=== PATIENT | female | born 1945 | race Hispanic/Latino ===

== ENCOUNTER 2020-11-11 13:25 | Emergency (ER) | payer MEDICARE ==
[2020-11-11] MEDS ORDERED: MORPHINE 2 MG/1 ML INJ IM NR ×2 (13:57→15:00)
[2020-11-11] MEDS ORDERED: SODIUM CHLORIDE 0.9% 500 ML 500 ML IV NR (13:57)
[2020-11-11] MEDS ORDERED: ONDANSETRON 4 MG/2 ML INJ IV NR ×2 (13:58→15:00)
--- NOTE | 2020-11-11 14:00 | Emergency Department Report ---
HPI <ADELINA LEMOS - Last Filed: 11/11/20 18:02> - HPI HPI: 75-year-old female with past medical history significant for bilateral hearing loss, COPD, and prior colostomy status post reversal presents complaining of left lower quadrant abdominal pain and left flank pain for approximately 1 week. She states that she had a colostomy in the past because she had perforated bowel. The patient reports that for the last week she has had worsening nausea and is now vomiting every time she tries to eat and often while trying to drink. She is not had a bowel movement in 1 week. She says that now because she is unable to tolerate p.o. she has been dry heaving. She states that she was seen in the ER at [place] on November 04 with these same symptoms, was worked up and was discharged home. He states that the left lower quadrant pain seemed to get much better for the first few days and then in the last couple days has gotten much worse and has been associated with nausea/vomiting. Other than the pain and nausea vomiting, she denies fever/chills, headache, vision change, chest pain, shortness of breath, cough, dysuria, focal weakness, sensory changes, or any other complaints. <XAVIERABRAHAM - Last Filed: 11/11/20 21:51> - General Chief Complaint: Abdominal Pain Time Seen by Provider: 11/11/20 13:40 ED Past Medical Hx <ADELINA LEMOS - Last Filed: 11/11/20 18:02> - Past Medical History Previous Medical History?: Yes Hx COPD: Yes - Social History Smoking Status: Current Every Day Smoker <XAVIERABRAHAM - Last Filed: 11/11/20 21:51> - Medications Home Medications: Home Medications Medication Instructions Recorded Confirmed Last Taken Type polyethylene glycoL 3350 [Miralax 17 gm PO QDAY #30 packet 11/11/20 Unknown Rx 3350] ED Review of Systems ROS: Stated complaint: ABDOMINAL PAIN Other details as noted in HPI <ADELINA LEMOS - Last Filed: 11/11/20 18:02> ROS: Stated complaint: ABDOMINAL PAIN Other details as noted in HPI Constitutional: denies: chills, fever Eyes: denies: eye pain, vision change ENT: denies: throat pain, congestion Respiratory: denies: cough, shortness of breath Cardiovascular: denies: chest pain, palpitations Gastrointestinal: abdominal pain, nausea, vomiting, constipation. denies: hematemesis Genitourinary: denies: dysuria, frequency Musculoskeletal: denies: joint swelling, myalgia Skin: denies: rash Neurological: denies: headache, weakness, numbness <ABRAHAM PARK - Last Filed: 11/11/20 21:51> Physical Exam - Physical Exam Vital Signs: Vital Signs 11/11/20 11/11/20 11/11/20 13:38 13:46 13:53 Temperature 98.1 F Pulse Rate 75 Respiratory 24 Rate Blood Pressure 179/88 O2 Sat by Pulse 98 98 Oximetry <ADELINA LEMOS - Last Filed: 11/11/20 18:02> - Physical Exam Vital Signs: Vital Signs 11/11/20 11/11/20 13:38 13:46 Pulse Rate 75 Respiratory 24 Rate Blood Pressure 179/88 O2 Sat by Pulse 98 98 Oximetry Physical Exam: GENERAL: Well developed and well nourished. No acute distress HEENT: Normocephalic. No obvious signs of trauma. Very poor dentition with multiple obvious caries and necrosis present. No obvious periapical abscess. Dry mucous membranes. EYES: Extraocular movements are intact. Pupils are equal round and reactive to light bilaterally NECK: Supple. Trachea is midline. LUNGS: Nonlabored breathing. Equal chest rise bilaterally. Clear to auscultation bilaterally. HEART/CARDIOVASCULAR: Regular rate and rhythm. No murmurs or rubs. VASCULAR: Cap refill < 2 seconds ABDOMEN: Abdomen is slightly distended. There is no firmness, although the patient has significant voluntary guarding most significantly on palpation of the left upper and left lower quadrants. There is no rebound tenderness. There are multiple healed surgical scars. SKIN: Skin is warm and dry NEURO: Patient is awake, alert, and oriented. distribution field technician II-XII grossly intact. No focal deficits. Normal motor and sensory exam throughout. Normal speech. MUSCULOSKELETAL: No obvious deformities. No significant tenderness. Normal ROM throughout. BACK/SPINE: No midline tenderness or step-offs of the C/T/L spine. No costovertebral angle tenderness. <ABRAHAM PARK - Last Filed: 11/11/20 21:51> ED Course Vital Signs 11/11/20 11/11/20 11/11/20 13:38 13:46 13:53 Temperature 98.1 F Pulse Rate 75 Respiratory 24 Rate Blood Pressure 179/88 O2 Sat by Pulse 98 98 Oximetry - Reevaluation(s) Reevaluation #1: 11/11/20 18:02 Patient reassessed. The patient has no left lower quadrant or any lower abdominal tenderness, rebound, guarding or peritoneal signs. She tells me she has follow-up with her primary care doctor on Wednesday of this week. She specifically denies irritative and obstructive urinary symptoms. She does report a known history of constipation and takes MiraLAX. However, she takes it infrequently, and her diet is poor, and typically does not consume a lot of fiber, vegetables, lean protein, and does not drink that much water. Counseled patient on natural history of constipation, and need to modify diet lifestyle. Patient given ice water by myself, which she tolerated, without difficulty. Patient is asking to be discharged, and at this point in time, given close follow-up, objective diagnostic and laboratory testing, lack of urinary symptoms, I think this plan of care is reasonable. <ADELINA LMEOS - Last Filed: 11/11/20 18:02> Vital Signs 11/11/20 11/11/20 13:38 13:46 Pulse Rate 75 Respiratory 24 Rate Blood Pressure 179/88 O2 Sat by Pulse 98 98 Oximetry <ABRAHAM PARK - Last Filed: 11/11/20 21:51> ED Medical Decision Making - Lab Data Result diagrams: 11/11/20 14:17 11/11/20 14:17 Vital Signs 11/11/20 11/11/20 11/11/20 13:38 13:46 13:53 Temperature 98.1 F Pulse Rate 75 Respiratory 24 Rate Blood Pressure 179/88 O2 Sat by Pulse 98 98 Oximetry Lab Results 11/11/20 11/11/20 Range/Units 14:17 14:17 WBC 10.2 (4.5-11.0) K/mm3 RBC 4.20 (3.65-5.03) M/mm3 Hgb 13.1 (10.1-14.3) gm/dl Hct 38.6 (30.3-42.9) % MCV 92 (79-97) fl MCH 31 (28-32) pg MCHC 34 (30-34) % RDW 13.0 L (13.2-15.2) % Plt Count 422 (140-440) K/mm3 Lymph % (Auto) 8.5 L (13.4-35.0) % [place] % (Auto) 5.2 (0.0-7.3) % Eos % (Auto) 0.8 (0.0-4.3) % Baso % (Auto) 0.2 (0.0-1.8) % Lymph # (Auto) 0.9 L (1.2-5.4) K/mm3 [place] # (Auto) 0.5 (0.0-0.8) K/mm3 Eos # (Auto) 0.1 (0.0-0.4) K/mm3 Baso # (Auto) 0.0 (0.0-0.1) K/mm3 Seg Neutrophils % 85.3 H (40.0-70.0) % Seg Neutrophils # 8.7 H (1.8-7.7) K/mm3 Sodium 130 L (137-145) mmol/L Potassium 4.3 (3.6-5.0) mmol/L Chloride 94.6 L (98-107) mmol/L Carbon Dioxide 24 (22-30) mmol/L Anion Gap 16 mmol/L BUN 30 H (7-17) mg/dL Creatinine 1.3 H (0.6-1.2) mg/dL Estimated GFR 40 ml/min BUN/Creatinine Ratio 23 % Glucose 114 H (65-100) mg/dL Calcium 10.4 H (8.4-10.2) mg/dL Magnesium 2.00 (1.7-2.3) mg/dL Total Bilirubin 0.20 (0.1-1.2) mg/dL Direct Bilirubin < 0.2 (0-0.2) mg/dL Indirect Bilirubin 0.0 mg/dL AST 20 (5-40) units/L ALT 17 (7-56) units/L Alkaline Phosphatase 76 (35-129) units/L Total Protein 7.1 (6.3-8.2) g/dL Albumin 3.7 L (3.9-5) g/dL Albumin/Globulin Ratio 1.1 % Lipase 17 (13-60) units/L - Radiology Data Radiology results: report reviewed, image reviewed CT ABDOMEN AND PELVIS WITH CONTRAST HISTORY: Left lower quadrant pain. COMPARISON: None TECHNIQUE: Routine abdominal and pelvic CT exam performed following intravenous contrast administration.. All CT scans at this location are performed using CT dose reduction for ALARA by means of automated exposure control. FINDINGS: CT ABDOMEN: Lung Bases: The lung bases are clear. There is a moderate hiatal hernia. Liver: No significant abnormality. Biliary: Gallbladder is surgically absent. [place] effect with mild enlargement of the common bile duct. Spleen: No significant abnormality. Unenlarged. Pancreas: No significant abnormality. Adrenals: No significant abnormality. Kidneys: No acute findings. Multiple renal cysts noted. Lymphatics: No lymphadenopathy. V asculature: Atherosclerotic but nonaneurysmal abdominal aorta. Bowel/Peritoneum: There are postsurgical changes from previous partial colectomy. There is a large volume of stool in the colon. However, there is no obstruction. There is no inflammatory change or free air. Appendix not visualized. No pericecal inflammation. CT PELVIC: : No significant abnormality. Lymphatics: No lymphadenopathy. Osseous Structures: No aggressive appearing osseous lesions. Additional Findings: None IMPRESSION: 1. Large volume of stool in the colon suggesting constipation without acute abnormality. Signer Name: Kade Smith MD Signed: 11/11/2020 3:48 PM Workstation Name: [id number] <ADELINA LEMOS - Last Filed: 11/11/20 18:02> - Lab Data Result diagrams: 11/11/20 14:17 11/11/20 14:17 - Medical Decision Making 75-year-old female with history of COPD, hearing loss, and abdominal surgical history related to prior perfect bowel resulting in colostomy status post reversal presenting with 7 days of worsening left lower quadrant abdominal pain, nausea/vomiting, and no bowel movement for the last 7 days. On initial assessment, the patient is afebrile and with normal vital signs other than greatly elevated blood pressure. She has dry mucous membranes. The abdomen is slightly distended and is not firm, although it is difficult to discern because the patient has voluntary guarding most significantly in the left lower quadrant and left upper quadrant of the abdomen. She has multiple surgical scars. In the context of the patient's presenting symptoms, we will perform work-up with a full set of labs and CT of the abdomen pelvis with IV contrast. We will give 1 L of IV fluids, 2 mg of morphine, and 4 mg of Zofran and reassess frequently. Labs have resulted and reveal no significant leukocytosis or anemia. She does have an AKIRA with creatinine of 1.3 and BUN of 30, although her baseline is unkn own. She does have hyponatremia with a sodium of 130. LFTs are unremarkable. Magnesium level is normal. Urinalysis still pending. We will follow up the results of all the diagnostic studies. <XAVIERABRAHAM Last Filed: 11/11/20 21:51> Critical care attestation.: If time is entered above; I have spent that time in minutes in the direct care of this critically ill patient, excluding procedure time. <AMINTAADELINA - Last Filed: 11/11/20 18:02> Critical care attestation.: If time is entered above; I have spent that time in minutes in the direct care of this critically ill patient, excluding procedure time. <XAVIERABRAHAM Filed: 11/11/20 21:51> ED Disposition Is pt being admited?: No <AMINTAADELINA Filed: 11/11/20 18:02> Is pt being admited?: No <XAVIERABRAHAM Filed: 11/11/20 21:51> Clinical Impression: Lower abdominal pain, Constipation Disposition: - TO HOME OR SELFCARE Condition: Good Instructions: Chronic Constipation, Constipation, Adult, Abdominal Pain (ED) Additional Instructions: Do not take metformin medication for the next 2 days, if patient takes this medication. Do not take Motrin, ibuprofen, Naprosyn, Aleve. Please drink 4 to 6 cups of water per day indefinitely, and consume plenty of fiber, vegetables, lean protein. Please have your primary care doctor contact the medical records department to follow-up on nonemergent incidental findings and laboratory studies and radiology studies. CT scan of the abdomen pelvis was obtained today, which suggested constipation. In the best of circumstances, constipation may take 3 to 6 weeks to improve. First-line treatment for constipation will be diet lifestyle modifications as discussed above. Patient may take the MiraLAX medication as directed. Please avoid narcotics and sedating medications. Patient may take Tylenol/acetaminophen [id number], 325 mg by mouth, every 4-6 hours as needed for pain. Please return to the emergency room right away with new pain, worsened pain, migration of pain, projectile vomiting, change in mental status, confusion, inability to tolerate liquid feeds, new, worsened or different symptoms not present on the initial emergency room evaluation. Prescriptions: polyethylene glycoL 3350 [Miralax 3350] 17 gm PO QDAY #30 packet Referrals: ALFONSO LEIGH MD [Staff Physician] - 3-5 Days
[2020-11-11 14:36] LABS: Basophils % (Auto) 0.2 % (0.0-1.8); Eosinophils # (Auto) 0.1 K/mm3 (0.0-0.4); Eosinophils % (Auto) 0.8 % (0.0-4.3); Hematocrit 38.6 % (30.3-42.9); Hemoglobin 13.1 gm/dl (10.1-14.3); Lymphocytes # (Auto) 0.9 K/mm3 (1.2-5.4); Lymphocytes % (Auto) 8.5 % (13.4-35.0); Mean Corpuscular HGB Conc 34 % (30-34); Mean Corpuscular Volume 92 fl (79-97); Monocytes # (Auto) 0.5 K/mm3 (0.0-0.8); Monocytes % (Auto) 5.2 % (0.0-7.3); Platelet Count 422 K/mm3 (140-440)
[2020-11-11 14:51] LABS: Alanine Aminotransferase 17 units/L (7-56); Albumin 3.7 g/dL (3.9-5); BUN/Creatinine Ratio 23; Blood Urea Nitrogen 30 mg/dL (7-17); Calcium 10.4 mg/dL (8.4-10.2); Hemolysis Index 12
[2020-11-11 14:56] LABS: Bilirubin,Direct < 0.2 mg/dL (0-0.2)
[2020-11-11] MEDS ORDERED: SODIUM CHLORIDE 0.9% 500 ML 1,000 ML IV NR (15:00)
[2020-11-11] MEDS ORDERED: SODIUM CHLORIDE 0.9% 1000 ML 1,000 ML ONE (15:02)
[2020-11-11] MEDS ORDERED: ONDANSETRON 4 MG/2 ML INJ IV ONE (15:05)
[2020-11-11] MEDS ORDERED: MORPHINE 2 MG/1 ML INJ IV ONE (15:05)
[2020-11-11] MEDS ORDERED: SODIUM CHLORIDE 0.9% 1000 ML 1,000 ML IV ONE (15:13)
--- NOTE | 2020-11-11 16:52 | Cat Scan Report ---
CT ABDOMEN AND PELVIS WITH CONTRAST HISTORY: Left lower quadrant pain. COMPARISON: None TECHNIQUE: Routine abdominal and pelvic CT exam performed following intravenous contrast administrat ion.. All CT scans at this location are performed using CT dose reduction for ALARA by means of autom ated exposure control. FINDINGS: CT ABDOMEN: Lung Bases: The lung bases are clear. There is a moderate hiatal hernia. Liver: No significant abnormality. Biliary: Gallbladder is surgically absent. [place] effect with mild enlargement of the common bile duct. Spleen: No significant abnormality. Unenlarged. Pancreas: No significant abnormality. Adrenals: No significant abnormality. Kidneys: No acute findings. Multiple renal cysts noted. Lymphatics: No lymphadenopathy. Vasculature: Atherosclerotic but nonaneurysmal abdominal aorta. Bowel/Peritoneum: There are postsurgical changes from previous partial colectomy. There is a large vo lume of stool in the colon. However, there is no obstruction. There is no inflammatory change or free air. Appendix not visualized. No pericecal inflammation. CT PELVIC: : No significant abnormality. Lymphatics: No lymphadenopathy. Osseous Structures: No aggressive appearing osseous lesions. Additional Findings: None IMPRESSION: 1. Large volume of stool in the colon suggesting constipation without acute abnormality. Signer Name: Kade Smith MD Signed: 11/11/2020 4:48 PM Workstation Name: [id number]
[2020-11-11 18:08] VITALS: BP 152/74
== END 2020-11-11 18:16 | disposition home or self-care (01) ==
LOC: ED 13:25
DX: K59.00 Constipation, unspecified (principal); R10.32 Left lower quadrant pain; F17.200 Nicotine dependence, unspecified, uncomplicated; J44.9 Chronic obstructive pulmonary disease, unspecified; Z79.899 Other long term (current) drug therapy; Z91.040 Latex allergy status; Z88.0 Allergy status to penicillin; Z91.018 Allergy to other foods
CPT/HCPCS: 36415; 74177; 80048; 80076; 83690; 83735; 85025; 96361; 96374; 96375; 99284; J2270; J2405; J7030; Q9967

== ENCOUNTER 2020-12-27 21:56 | Emergency (ER) | payer MEDICARE | END 2020-12-28 00:18 | LOC: ED 21:56 | DX: R10.9 Unspecified abdominal pain (principal); Z53.21 Procedure and treatment not carried out due to patient leaving prior to being seen by health care provider ==